=== PATIENT | male | born 1990 | race African-American/Black ===

== ENCOUNTER 2019-02-01 16:39 | Emergency (ER) | payer BC, MEDICAID ==
[2019-02-01 17:30] VITALS: BP 106/55
--- NOTE | 2019-02-01 18:26 | UC ---
Throat Pain/Nasal Jason HPI - HPI Summary HPI Summary: 28 yo male with a three day hx of sore throat and nasal congestion feverish malaise fatigue both ears "full" - History of Current Complaint Chief Complaint: UCRespiratory Stated Complaint: CONGESTION/ACHY/FATIGUE Time Seen by Provider: 02/01/19 17:59 Hx Obtained From: Patient Onset/Duration: Gradual Onset, Lasting Days Severity: Mild Pain Intensity: 3 Pain Scale Used: 0-10 Numeric Cough: None Associated Signs & Symptoms: Positive: Sinus Discomfort - Epiglottits Risk Factors Epiglottis Risk Factors: Negative - Allergies/Home Medications Allergies/Adverse Reactions: Allergies Allergy/AdvReac Type Severity Reaction Status Date / Time No Known Allergies Allergy Verified 02/01/19 17:24 PMH/Surg Hx/FS Hx/Imm Hx Previously Healthy: Yes - Surgical History Surgical History: None - Family History Known Family History: Positive: Hypertension Negative: Cardiac Disease, Diabetes - Social History Alcohol Use: None Substance Use Type: None Smoking Status (MU): Heavy Every Day Tobacco Smoker Type: Cigarettes Amount Used/How Often: 5 cigs to 2 PPD Length of Time of Smoking/Using Tobacco: 7 years Review of Systems All Other Systems Reviewed And Are Negative: Yes Constitutional: Positive: Fatigue Skin: Positive: Negative Eyes: Positive: Negative ENT: Positive: Sore Throat, Ear Ache, Sinus Congestion Respiratory: Positive: Negative Cardiovascular: Positive: Negative Gastrointestinal: Positive: Negative Genitourinary: Positive: Negative Motor: Positive: Negative Neurovascular: Positive: Negative Musculoskeletal: Positive: Negative Neurological: Positive: Negative Psychological: Positive: Negative Physical Exam Triage Information Reviewed: Yes Appearance: Well-Appearing, No Pain Distress, Well-Nourished Vital Signs: Initial Vital Signs Temp 98.5 F 02/01/19 17:25 Pulse 60 02/01/19 17:25 Resp 16 02/01/19 17:25 BP 106/55 02/01/19 17:25 Pulse Ox 99 02/01/19 17:25 Vital Signs Reviewed: Yes Eyes: Positive: Conjunctiva Clear ENT: Positive: Hearing grossly normal, Pharyngeal erythema, Nasal congestion, TM bulging - L, Uvula midline. Negative: Nasal drainage, TMs normal - unable to visualize right due to cerumen, TM dull, TM red, Tonsillar swelling, Tonsillar exudate, Trismus, Muffled voice, Hoarse voice, Dental tenderness Neck: Positive: Supple, Nontender, No Lymphadenopathy Respiratory: Positive: Lungs clear, Normal breath sounds, No respiratory distress, No accessory muscle use Cardiovascular: Positive: RRR, No Murmur Musculoskeletal: Positive: ROM Intact, No Edema Neurological: Positive: Alert Psychological Exam: Normal Skin Exam: Normal Throat Pain/Nasal Course/Dx - Course Course Of Treatment: strep (-), improved after ear flush - Differential Dx/Diagnosis Provider Diagnosis: Acute pharyngitis, Right ear impacted cerumen Discharge - Sign-Out/Discharge Documenting (check all that apply): Patient Departure All imaging exams completed and their final reports reviewed: No Studies - Discharge Plan Condition: Stable Disposition: HOME Prescriptions: predniSONE [Prednisone 20 MG TAB] 60 mg PO DAILY #9 tab Patient Education Materials: Pharyngitis (ED), Cerumen Impaction (ED) Forms: *Work Release Referrals: No Primary Care Phys,NOPCP [Primary Care Provider] - Additional Instructions: start prednisone in AM - Billing Disposition and Condition Condition: STABLE Disposition: Home
== END 2019-02-01 18:48 | disposition home or self-care (01) ==
LOC: UCCORT 16:39
DX: J02.9 Acute pharyngitis, unspecified (principal); H61.21 Impacted cerumen, right ear; F17.210 Nicotine dependence, cigarettes, uncomplicated
CPT/HCPCS: 87651; 99203; G0463